=== PATIENT | male | born 1980 | race Caucasian/White ===

== ENCOUNTER 2024-02-04 22:31 | Emergency (ER) | payer MEDICAID ==
[2024-02-04 23:53] LABS: ALT (SGPT) 84 U/L (8-55); AST (SGOT) 193 U/L (5-34); Albumin 3.7 g/dL (3.5-5.0); Alkaline Phosphatase 114 U/L (40-110); Anion Gap 24 mmol/L (10-20); BUN (Urea Nitrogen) 9 mg/dL (8.9-20.6); Bilirubin, Total 2.6 mg/dL (0.2-1.2); Calc. Creatinine Clearance 0 mL/min (70-130); Calcium 8.7 mg/dL (7.8-10.44); Carbon Dioxide 16 mmol/L (22-29); Chloride 103 mmol/L (98-107); Estimated GFR 110; Globulin 2.9 g/dL (2.4-3.5); Magnesium 1.7 mg/dL (1.6-2.6); Protein, Total 6.6 g/dL (6.0-8.3); Sodium 140 mmol/L (136-145)
[2024-02-04 23:55] LABS: Glucose 48 mg/dL (70-105)
[2024-02-05] MEDS ORDERED: Potassium Bicarbonate/Cit Ac 20 MEQ TAB ONE (00:21)
[2024-02-05] MEDS ORDERED: Potassium Bicarbonate/Cit Ac 25 MEQ TAB ONE (00:23)
[2024-02-05] MEDS ORDERED: Ibuprofen 200 MG TAB ONE (00:34)
[2024-02-05] MEDS ORDERED: Ziprasidone 20 MG CAP ONE (01:39)
[2024-02-05] MEDS ORDERED: Diazepam 5 MG TAB ONE (02:12)
== END 2024-02-05 00:30 | disposition home or self-care (01) ==
LOC: CSHERS 22:31
DX: F29 Unspecified psychosis not due to a substance or known physiological condition (principal); F10.10 Alcohol abuse, uncomplicated; F22 Delusional disorders; E87.6 Hypokalemia; F19.10 Other psychoactive substance abuse, uncomplicated; F25.9 Schizoaffective disorder, unspecified; F17.290 Nicotine dependence, other tobacco product, uncomplicated
CPT/HCPCS: 36415; 36416; 80053; 82140; 83735; 99285